=== PATIENT | male | born 1985 | race Caucasian/White ===

== ENCOUNTER 2021-10-02 15:45 | Observation (INO) | payer BC, SELFPAY ==
[2021-10-02] VITALS (7 sets, daily range): BP systolic 88–127; BP diastolic 71–99; PULSE 89–158; RESP 16–18; TEMP 36.6–36.7; O2SAT 96–99; BMI 24.2; BMI 25.0
--- NOTE | 2021-10-02 16:02 | EDS_ITS ---
HPI History of Present Illness Chief Complaint: Back Informant: patient Onset/Context/Timing Onset: Weeks (2-3) Context: Gradual Onset Timing: Continuous and Waxes and wanes Quality: Sharp and - (Stabbing) Location: Thoracic and Lumbar Worsened by: improves with Night time pain Relieved by: Remaining Still Narrative Narrative: Patient presents with back pain that has been waxing and waning over the past 2 to 3 weeks. Patient states it came on gradually. Patient describes his pain as sharp and stabbing. Patient states the pain is over the left lower thoracic and lumbar area. Patient states his pain is worse at night. Patient states pain radiates down his legs bilaterally but is worse on the right. Patient does admit to some mild numbness and tingling. Patient denies any bowel or bladder changes. Patient denies any saddle anesthesia. Patient denies any trauma or injury. Patient states she went to urgent care for this. Patient states she was prescribed an antibiotic and a course of prednisone. Patient states he finished the antibiotic. Patient states it was to cover an infection in his foot. Patient states he is still taking the prednisone. [facility] Medical History (Updated 10/02/21 @ 19:[address] Adrián Meehan DO) No acute medical problems Medical History no medical history no medical history Home Medications No Known/Unobtainable [No Known Home Medications] 03/28/15 [History Last Taken Unknown] Allergy/AdvReac Type Severity Reaction Status Date / Time No Known Allergies Allergy Verified 10/02/21 16:03 Surgical History no surgical history no surgical history Social History Smoking Status: Never smoker ROS ROS ED Constitutional Constitutional ED: Denies chills or fever(s) Eyes Eyes: Denies blurry vision or change in vision ENT ENT ED: Reports sore throat; Denies rhinorrhea Cardiovascular Cardiovascular: Denies chest pain or palpitations Respiratory/Chest Respiratory/Chest: Denies cough or dyspnea Gastrointestinal Gastrointestinal: Denies nausea or vomiting Genitourinary Genitourinary ED: Denies dysuria or hematuria Musculoskeletal Musculoskeletal: Reports back pain; Denies neck pain Integumentary Denies abscess or rash Neurologic Neurologic: Denies headache(s) or weakness Allergic/Immunologic Allergic/Immunologic ED: Denies mouth swelling or urticaria EXAM Physical Exam Const Vital Signs: 10/02/21 15:46 10/02/21 15:57 10/02/21 16:31 Temperature 97.9 F 98.0 F Temperature Source Temporal Oral Pulse Rate 158 H 120 H Respiratory Rate 16 16 18 Blood Pressure 88/75 L 127/99 H 110/75 Blood Pressure Mean 79 108 86 Pulse Ox 99 Oxygen Delivery Method Room Air Room Air Room Air 10/02/21 18:28 Temperature Temperature Source Pulse Rate 111 H Respiratory Rate 18 Blood Pressure 105/78 Blood Pressure Mean 87 Pulse Ox 97 Oxygen Delivery Method Room Air Positive well nourished and well developed General Appearance ED: well developed and NAD HEENT Reports moist mucous membranes Resp normal respiratory effort and clear to auscultation bilaterally Cardio regular rhythm Rate: tachycardic GI normal to inspection, nondistended, normoactive bowel sounds, soft to palpation and non-tender Back/Spine Back/Spine Narrative: There is tenderness and spasm of the left lower thoracic and lumbar paraspinal muscles. There is no midline tenderness. There is no bony crepitance or step- off. There is no edema or ecchymosis. There is good range of motion. Strength is 5/5 bilaterally in lower extremities. There are no sensory deficits. Deep tendon reflexes are 2/4 bilaterally. Thoracic Spine / Upper Back: paraspinal muscle tenderness left Lumbar Spine / Lower Back: ROM limited and straight leg raise negative bi laterally Extremity normal to inspection and no clubbing, cyanosis or edema Neuro oriented x3 and no sensory deficits noted Motor Exam: strength 5/5 throughout Skin no rashes or lesions noted MDM MDM MDM Narrative Medical decision making narrative: Patient was given IV fluids and morphine. Initial EKG was obtained. On my interpretation, it showed a supraventricular tachycardia with a rate of 129. QRS interval is normal at 90, QTc interval was 454. [place] was normal. There are no acute ST or T wave changes. CBC shows a leukocytosis of 14.4. This is likely from the prednisone. Comprehensive metabolic profile was within normal limits. High-sensitivity troponin was normal. Urinalysis does not show any evidence of urinary tract infection. CTA of the chest, abdomen, and pelvis was obtained. There is no evidence of arterial dissection. There is no evidence of pulmonary embolism. There is no acute intra-abdominal abnormality. This was interpreted by the radiologist and reviewed by myself. Patient was advised of his findings. On reevaluation, the patient had a normal heart rate but sometimes would become mildly tachycardic in the 110s. This was intermittent while I was talking with him in the room. Because of this, repeat EKG was obtained. Interpretation, patient still had a accelerated junctional tachycardia with a rate of 121. There are no acute ST or T wave changes. I went back to his room to discuss his options with him. I recommended he be admitted to the hospital for further evaluation. While I was talking to him, he would have episodes of a normal sinus rhythm and then episodes of the tachycardia on the monitor. Patient's blood pressure was 90/58. Patient was given a repeat bolus of normal saline. Because of the low blood pressure, I am holding off on giving the patient any Cardizem for the tachycardia. Case was discussed with the hospitalist. She will admit the patient for observation. Patient and family understood and were agreeable with the plan. All questions were answered. Lab Data Attestation: I reviewed the patient's lab results. Labs: Laboratory Results - last 24 hr 10/02/21 10/02/21 10/02/21 16:25 16:25 17:10 WBC 14.4 H RBC 4.95 Hgb 16.1 Hct 45.8 MCV 92.5 MCH 32.5 H MCHC 35.2 RDW Std Deviation 40.7 RDW Coeff of Jaime 11.9 Plt Count 326 MPV 9.1 Immature Gran % (Auto) 0.600 Neut % (Auto) 87.7 H Lymph % (Auto) 5.9 L [place] % (Auto) 4.9 Eos % (Auto) 0.6 Baso % (Auto) 0.3 Absolute Neuts (auto) 12.6 H Absolute Lymphs (auto) 0.84 Nucleated RBC % 0 Sodium 138 Potassium 3.7 Chloride 105 Carbon Dioxide 27.0 Anion Gap 6 BUN 18 Creatinine 1.14 Estim Creat Clear Calc 91.61 Est GFR (MDRD) Af Amer 93 Est GFR (MDRD) Non-Af 77 BUN/Creatinine Ratio 15.8 Glucose 165 H Calcium 9.2 Total Bilirubin 0.40 AST 16 ALT 28 Alkaline Phosphatase 54 Troponin I High Sens 8 Total Protein 7.0 Albumin 3.4 Globulin 3.6 Albumin/Globulin Ratio 0.9 Urine Color Straw Urine Clarity Clear Urine pH 7.0 Ur Specific [place] 1.010 Urine Protein Negative Urine Glucose (UA) Normal Urine Ketones Negative Urine Occult Blood Negative Urine Nitrite Negative Urine Bilirubin Negative Urine Urobilinogen Normal Ur Leukocyte Esterase Negative Urine RBC 0 SEEN Urine WBC 0 SEEN Ur Squamous Epith Cells 0 SEEN Urine Bacteria 1+ Urine Mucus 0 SEEN Radiography Diagnostic Testing: Clinical Impression(s) from Imaging Studies Chest/Abdomen/Pelvis CTA 10/02/21 16:07 IMPRESSION: Fatty infiltration of the liver. Enlarged prostate gland. Electronically Signed: Callie Vera MD at 17:31 EDT , ADDENDUM: 10/02/21 3802 IMPRESSION: undefined EKG Initial EKG: Attestation: I personally reviewed and interpreted this EKG as follows: Interpretation: No Acute Injury Pattern and SVT (129) Prior EKG tracings: not available for review Prior: No Prior Discharge Plan Triage Chief Complaint: Back ED Provider: Adrián Meehan Dx/Rx/DC Orders Clinical Impression: Junctional tachycardia, Back pain of thoracolumbar region Prescriptions: No Action No Known Home Medications Primary Care Provider: Care Physician,No Primary Referrals: Jonah Garcia DO [Med Staff - Principal Hardware Architect] - 5-7 Days Care Physician,No Primary [Primary Care Provider] - Disposition Disposition: Acute Care Hospital [facility]
--- NOTE | 2021-10-02 16:07 | EKG12_ITS ---
Test Reason : GENERAL ILLNESS Blood Pressure : / mmHG Vent. Rate : 129 BPM Atrial Rate : 131 BPM P-R Int : 000 ms QRS Dur : 090 ms QT Int : 310 ms P-R-T Axes : 000 089 017 degrees QTc Int : 454 ms Accelerated Junctional rhythm Abnormal ECG Confirmed by SAMMY VALENCIA, MADISON ([id number]), business editor MARY SANCHEZ ([id number]) on 10/04/2021 1:06:11 PM Referred By: JOSUE Confirmed By:MADISON CHRISTIANSON MD
--- NOTE | 2021-10-02 16:07 | CT_ITS ---
INDICATION: Chest pain, back pain EXAMINATION: CTA CHEST, ABDOMEN AND PELVIS WITH CONTRAST - TECHNIQUE: A CTA of the chest, abdomen, and pelvis is obtained with sagittal and coronal reconstructed MIP views. Three-dimensional surface rendered sequence of the thoracic and abdominal aorta was obtained. A radiation dose optimization technique was used for this scan. 100 mL of Isovue-370. Oral contrast: None. COMPARISON: None. FINDINGS: CT CHEST: THORACIC AORTA: No atheromatous disease, no aneurysmal changes or dissection. ABDOMINAL AORTA: No aneurysm or dissection. No significant atheromatous disease. The iliac arteries are unremarkable. LUNGS: The lungs are well-expanded without acute or chronic changes. No effusions or pneumothorax. MEDIASTINUM: The thyroid gland is normal. No mediastinal or hilar adenopathy. HEART: Heart is normal size. No pericardial effusion. No coronary artery calcifications. CT ABDOMEN AND PELVIS: LIVER: The liver is diffusely low in attenuation consistent with fatty infiltration. No masses identified. GALLBLADDER: The CBD is normal. Normal gallbladder. SPLEEN: Normal. PANCREAS: No masses or inflammation. ADRENAL GLANDS: Normal. KIDNEYS AND URETERS: The kidneys both enhance appropriately. There are normal size and shape. No hydronephrosis or nephrolithiasis. There are bilateral renal cysts. STOMACH: Normal. SMALL BOWEL: No abnormal distention of the small bowel. MESENTERY: No mesenteric inflammation. No ascites. COLON: No significant diverticulosis, masses or inflammation. The colon otherwise is normal. There is a large fatty ileocecal valve. APPENDIX: The appendix is visualized and normal. IVC: Normal. RETROPERITONEUM: No retroperitoneal lymphadenopathy. PELVIC STRUCTURES: Normal bladder. The prostate gland is enlarged. SOFT TISSUES ABDOMEN: The anterior abdominal wall is normal. SOFT TISSUE CHEST: The extrathoracic soft tissues are normal. BONES: No fractures or significant degenerative disease. CT/CTA Chst, Abd, Pel W and/or WO IMPRESSION: Fatty infiltration of the liver. Enlarged prostate gland. Electronically Signed: Callie Vera MD at 17:31 EDT ,
--- NOTE | 2021-10-02 16:20 | NURSING ---
NO OLD EKGS
[2021-10-02] MEDS: 0.9% Normal Saline 1,000 ML 1000 ML IV ×2 (16:28→18:51)
[2021-10-02 16:49] LABS: Absolute Lymphocyte Count 0.84 X10^3/uL (0.83-4.51); Absolute Neutrophil Count 12.6 X10^3/uL (2.0-7.7); Basophil# 0.04 X10^3/uL; Basophil% 0.3 % (0-1); Eosinophil# 0.08 X10^3/uL; Eosinophils% 0.6 % (0-5); Hematocrit 45.8 % (40-54); Hemoglobin 16.1 g/dL (13.0-16.5); Lymphocyte # 0.84 X10^3/ul (0.83-4.51); Lymphocyte % 5.9 % (19-41); Mean Corp Hgb Conc 35.2 g/dL (32-36); Mean Corpuscular Hgb 32.5 pg (27.0-32.0); Mean Corpuscular Volume 92.5 fL (80-94); Mean Platelet Vol. 9.1 fl (6.2-12.0); Monocyte# 0.71 X10^3/uL; Monocyte% 4.9 % (0-10); NRBC Flagged by Analyzer 0 % (0-5); Neutrophil % 87.7 % (47-70); Platelet Count 326 K/mm3 (150-450); RBC Distribution Width CV 11.9 % (11.6-14.6); RBC Distribution Width SD 40.7 fl (35.1-43.9); Red Blood Count 4.95 M/mm3 (4.6-6.2); White Blood Count 14.4 K/mm3 (4.4-11.0)
[2021-10-02 17:00] LABS: ALB/GLOB Ratio 0.9 RATIO (0.9-2.4); AST(SGOT) 16 U/L (15-37); Alanine Aminotransfer ALT/SGPT 28 U/L (16-61); Albumin, Serum 3.4 g/dL (3.2-5.0); Alkaline Phosphatase 54 U/L (45-117); Anion Gap 6 (5-15); BUN 18 mg/dL (7-18); BUN/Creat Ratio 15.8 RATIO (10-20); Calcium,Total 9.2 mg/dL (8.5-10.1); Chloride 105 mmol/L (98-107); Creatinine, Serum 1.14 mg/dL (0.70-1.30); EST Glomerular Filtration Rate 77 mL/min (>60); Est Glom Filt Rate - Afr Amer 93 mL/min (>60); Estimated Creatinine Clearance 91.61 ml/min; Globulin 3.6 g/dL (2.2-4.2); Glucose 165 mg/dL (74-106); Potassium 3.7 mmol/L (3.5-5.1); Sodium Level 138 mmol/L (136-145); Troponin-I HS 8 pg/mL (3.0-78.0)
[2021-10-02 17:24] LABS: Mucous, Urine 0 SEEN /hpf (<or=2+); Red Blood Cells-Urine 0 SEEN /hpf (0-5); Squamous Epithelial Cells - UA 0 SEEN /hpf (0-5); White Blood Cells 0 SEEN /hpf (0-5)
[2021-10-02 17:31] LABS: Color, Urine Straw (Yellow); Glucose, Dipstick Normal (Normal); Ketone-Dipstick Negative (Negative); Leukocyte Esterase-Dipstick Negative /ul (Negative); Nitrite-Dipstick Negative (Negative); Occult Blood-Urine Negative /ul (Negative); Protein-Dipstick Negative (Negative); Urine Bilirubin Dipstick Negative (Negative); Urine Clarity Clear (Clear); Urine Urobilinogen Normal (Normal)
[2021-10-02 17:50] LABS: Bacteria 1+ /hpf (None Seen)
[2021-10-02] MEDS: Morphine 4 MG/ML Syringe IV (17:51)
--- NOTE | 2021-10-02 17:59 | EKG12_ITS ---
Test Reason : REPEAT Blood Pressure : / mmHG Vent. Rate : 122 BPM Atrial Rate : 122 BPM P-R Int : 000 ms QRS Dur : 090 ms QT Int : 324 ms P-R-T Axes : 000 092 145 degrees QTc Int : 461 ms Accelerated Junctional rhythm Lateral infarct , age undetermined Abnormal ECG Confirmed by SAMMY VALENCIA, MADISON ([id number]), acquisition editor MARY SANCHEZ ([id number]) on 10/04/2021 1:06:26 PM Referred By: JOSUE Confirmed By:MADISON CHRISTIANSON MD
--- NOTE | 2021-10-02 19:00 | HP.PCM.HOS_ITS ---
HPI - General General Date of Admission: 10/02/21 Date of Service: 10/02/21 Chief Complaint: Intractable back pain, radicular pain, weight loss, night sweats. HPI Narrative The patient is a 36 y/o M w/ no marked PMHx, healthy, exercises 5x/week who presents to the [facility] ED on 10/02/21 with ongoing progressively worsening, primarily at night, lumbar back pain over the last 2 to 3 weeks noted to be waxing and waning, when it comes on sharp and stabbing in nature primarily over the left thoracic region just below the shoulder blade (isolated) and then also to the BL lumbar region and SI region with radiation down primarily the RLE extremity with mild intermittent paresthesias with no loss or change to bowel or bladder and no saddle anesthesia nor any recent trauma or injury with urgent care evaluation with recent steroid administration x2 rounds. Of note patient was administered oral antibiotic for a foot infection 3 weeks prior to current presentation which has resolved, was noted to have cellulitis between the 1st and 2nd toes but does report frequently walks barefoot in the home. He rates his discomfort in the back when occurring 7-810 in severity and it has caused him to be unable to sleep well or continuously for the last several weeks. He notes also a ~ 20 lb weight loss and nights sweats. Work up in the ED included T97.7, heart rate initially 150 with most recent 111, BP initially 88/75 with most recent 105/78, respiratory rate 16, 99% on room air, CBC with WC 14.4, hemoglobin 16.1, platelet 326 with left shift, CMP with glucose 165 otherwise not marked appearing, troponin 8, urinalysis with no obvious evidence of dehydration or UTI, CTA chest/abdomen/pelvis with fatty infiltration of the liver and enlarged prostate with suboptimal opacification the segmental and subsegmental pulmonary arteries but no gross pulmonary emboli visualized, EKG x 2 with junctional tachycardia with no comparison and on monitor will transition to SR in the 80s then flip back. In the ED patient administered 2 L bolus normal saline as well as morphine 4 mg IV x1. [facility] Medical History (Updated 10/02/21 @ 19:[address] Adrián Meehan, DO) No acute medical problems Medical History no medical history Home Medications No Known/Unobtainable [No Known Home Medications] 01/24/16 [History Last Taken Unknown] Allergy/AdvReac Type Severity Reaction Status Date / Time No Known Allergies Allergy Verified 10/02/21 16:03 Family History (Updated 10/02/21 @ 19:[address] Lois Neal MD) Mother HLD (hyperlipidemia) other (Patient denies any marked paternal family history including HD, DM, CA.) Surgical History (Updated 10/02/21 @ 19:[address] Lois Neal MD) No history of previous surgery Surgical History no surgical history Social History (Updated 10/02/21 @ 19:[address] Lois Neal MD) household members: other details: Lives with his and two children. Smoking Status: Never smoker alcohol intake: current alcohol intake frequency: a few times a month substance use type: does not use what type of physical activity do you participate in: aerobics and weight training frequency: 5-6 times per week ROS ROS Narrative Admission Review of Systems: CONSTITUTIONAL: No fever, chills, + weight loss, night sweats, weakness or fatigue. HEENT: Eyes: No visual loss, blurred vision, double vision or yellow sclerae. Ears, Nose, Throat: No hearing loss, sneezing, congestion, runny nose or sore throat. SKIN: No rash or itching, lesions, wounds. CARDIOVASCULAR: No chest pain, chest pressure or chest discomfort, palpitations, edema, orthopnea, syncopal events. RESPIRATORY: No shortness of breath, cough or sputum, wheezing, hemoptysis. GASTROINTESTINAL: No anorexia, nausea, vomiting or diarrhea, abdominal pain, melena, BRBPR. GENITOURINARY: No dysuria, frequency, urgency or retention. NEUROLOGICAL: + Back pain, radiculopathy, paresthesias, No headache, dizziness, syncope, paralysis, ataxia, focal weakness, change in bowel or bladder control, seizure. MUSCULOSKELETAL: + muscle, back pain, joint pain or stiffness. HEMATOLOGIC: No anemia, bleeding or bruising. LYMPHATICS: No enlarged nodes. No history of splenectomy. PSYCHIATRIC: No history of depression or anxiety. ENDOCRINOLOGIC:+ reports of sweating, cold or heat intolerance. No polyuria or polydipsia. ALLERGIES: No history of asthma, hives, eczema or rhinitis. Vital Signs Vital Signs Vital Signs: 10/02/21 15:46 10/02/21 15:57 10/02/21 16:31 Temperature 97.9 F 98.0 F Temperature Source Temporal Oral Pulse Rate 158 H 120 H Respiratory Rate 16 16 18 Blood Pressure 88/75 L 127/99 H 110/75 Blood Pressure Mean 79 108 86 Pulse Ox 99 Oxygen Delivery Method Room Air Room Air Room Air 10/02/21 18:28 Temperature Temperature Source Pulse Rate 111 H Respiratory Rate 18 Blood Pressure 105/78 Blood Pressure Mean 87 Pulse Ox 97 Oxygen Delivery Method Room Air Weight Weight: 169 lb Body Mass Index (BMI) 24.2 Physical Exam Narrative Physical Examination: General: Awake, alert, oriented x 3 and cooperative, seated upright in the ED bed in no apparent distress currently, notes pain primarily worse at night but with palpation of the L thoracic region able to cause radiculopathy and paresthesia onset RLE. Skin: Normal color, normal turgor, no icterus, no cyanosis. HEENT: AT/NC, EOMI, PERRLA, MMM, no carotid bruits or JVD noted. Lungs: CTA bilaterally, moderate effort, mild decrease BL bases, no rales, ronchi or wheezing. Heart: Irregular irregular; no gallop, rub audible. Abdomen: Soft, NTTP, ND, distant normal BS, no HSM. Extremities: No cyanosis, clubbing, or edema. Neurological: Patient awake, alert, oriented as noted, cognitive function intact; pupils equally reactive to light and accommodation, cranial nerves II- XII grossly normal, moving all 4 extremities, no focal deficits, strength mildly globally decreased, reproducible paresthesias, radiculopathy with L lateral thoracic region palpation below shoulder blade, no obvious mass/skin change, dis comfort w/ BL lumbar paraspinous palpation and SI palpation. Psychiatric: Affect appears fatigued otherwise normal, no acute evidence of depressive or anxiety feelings. Results Lab / Micro Data Result Diagrams: 10/02/21 16:25 10/02/21 16:25 Labs: Laboratory Results - last 24 hr 10/02/21 16:25: WBC 14.4 H, RBC 4.95, Hgb 16.1, Hct 45.8, MCV 92.5, MCH 32.5 H, MCHC 35.2, RDW Std Deviation 40.7, RDW Coeff of Jaime 11.9, Plt Count 326, MPV 9.1, Immature Gran % (Auto) 0.600, Neut % (Auto) 87.7 H, Lymph % (Auto) 5.9 L, [place] % (Auto) 4.9, Eos % (Auto) 0.6, Baso % (Auto) 0.3, Absolute Neuts (auto) 12.6 H, Absolute Lymphs (auto) 0.84, Nucleated RBC % 0 10/02/21 16:25: Sodium 138, Potassium 3.7, Chloride 105, Carbon Dioxide 27.0, Anion Gap 6, BUN 18, Creatinine 1.14, Estim Creat Clear Calc 91.61, Est GFR (MDRD) Af Amer 93, Est GFR (MDRD) Non-Af 77, BUN/Creatinine Ratio 15.8, Glucose 165 H, Calcium 9.2, Total Bilirubin 0.40, AST 16, ALT 28, Alkaline Phosphatase 54, Troponin I High Sens 8, Total Protein 7.0, Albumin 3.4, Globulin 3.6, Albumi n/Globulin Ratio 0.9 10/02/21 17:10: Urine Color Straw, Urine Clarity Clear, Urine pH 7.0, Ur Specific [place] 1.010, Urine Protein Negative, Urine Glucose (UA) Normal, Urine Ketones Negative, Urine Occult Blood Negative, Urine Nitrite Negative, Urine Bilirubin Negative, Urine Urobilinogen Normal, Ur Leukocyte Esterase Negative, Urine RBC 0 SEEN, Urine WBC 0 SEEN, Ur Squamous Epith Cells 0 SEEN, Urine Bacteria 1+, Urine Mucus 0 SEEN Radiology Impression Chest/Abdomen/Pelvis CTA 10/02/21 16:07 IMPRESSION: Fatty infiltration of the liver. Enlarged prostate gland. Electronically Signed: Callie Vera MD at 17:31 EDT , ADDENDUM: 10/02/21 0581 IMPRESSION: undefined Assessment & Plan Assessment/Plan (1) Back pain of thoracolumbar region: (2) Junctional tachycardia: PLAN: Plan The patient is a 36 y/o M w/ no marked PMHx, healthy, exercises 5x/week who presents to the [facility] ED on 10/02/21 with ongoing progressively worsening, primarily at night, lumbar back pain w/ RLE extremity radicular pain w/ mild intermittent paresthesias as well as a ~ 20 lb weight loss and nights sweats. #1. Acute Intractable Back Pain w/ Radiculopathy, Paresthesias: CT C/A/P without acute findings, unclear etiology for back pain. Will admit to PCU given #2 concurrently, maintain on fall precautions, frequent positioning, initiate IV toradol, lidoacine patches, tizanidine, medrol dose pack, po/IV narcotic pain regimen with hold parameters for scheduled regimen for sedation, anti-emetics, bowel regimen. Will consult PT and OT for evaluation as well as Case management for discharge planning. Given paresthesias and no obvious findings on CT with weight loss and night sweats with incidentally noted also enlarged prostate will request MRI thoracic and lumbar spine. #2. Arrhythmia, junctional rhythm intermittently: We will maintain on monitor, cycle cardiac enzymes, obtain FLP in a.m., obtain TSH/free T4, obtain magnesium level, obtain ECHO, repeat EKG and continue to treat as noted number 1. #3. Hypotension, medication related: Notably decreased BP following morphine administration, improved with IVFs, will be judicious with narcotic regimen. #4. Incidentally enlarged prostate: Although recent acute presentation, will obtain PSA for baseline. #5. Hyperglycemia: Admission glucose 165, likely secondary to steroid usage, will trend and obtain HgBA1c if necessary. #6. DVT prophylaxis: Low risk with no obvious concerning history at this point although work is pending as noted, despite #1 is able to ambulate well. Charges/Coding Visit Charges OBSV E&M: 24027 Initial observation care L2
[2021-10-02 20:19] LABS: Magnesium 1.9 mg/dL (1.6-2.6)
[2021-10-02 20:21] LABS: Amphetamine Urine VISTA NEGATIVE (<1000 ng/mL); Barbiturate Urine VISTA NEGATIVE (< 200 ng/mL); Benzodiazepine Urine VISTA NEGATIVE (< 200 ng/mL); Cocaine Urine VISTA NEGATIVE (< 300 ng/mL); Ecstacy Urine VISTA NEGATIVE (< 500 ng/mL); Methadone Urine VISTA NEGATIVE (< 300 ng/mL); PCP Urine VISTA NEGATIVE (< 25 ng/mL); THC Urine VISTA NEGATIVE (< 50 ng/mL); Vista UDS pH Range 6
[2021-10-02] MEDS: 0.9% Normal Saline 1,000 ML 125 ML IV (21:12)
[2021-10-02] MEDS: Gabapentin 100 MG Capsule PO (21:12)
[2021-10-02] MEDS: Ketorolac 30 MG/ML Syringe IV (21:12)
[2021-10-02] MEDS: 0.9% Saline Lock 10 ML Syringe IV (21:13)
[2021-10-02 21:19] LABS: Troponin-I HS 7 pg/mL (3.0-78.0)
[2021-10-02] MEDS: Lidocaine 5% Patch 2 PATCH TOPICAL (21:26)
[2021-10-02] MEDS: MethylPREDNISolone DosePak 4 MG BOX PO (21:30)
[2021-10-02] MEDS: tiZANidine HCl 2 MG Tablet PO (21:30)
[2021-10-02 22:58] LABS: Troponin-I HS 5 pg/mL (3.0-78.0)
[2021-10-03 02:44] VITALS: BP 118/88; PULSE 81; RESP 18; TEMP 36.4; O2SAT 98
[2021-10-03 02:59] VITALS: PULSE 86
[2021-10-03 03:24] LABS: Absolute Lymphocyte Count 0.83 X10^3/uL (0.83-4.51); Absolute Neutrophil Count 11.9 X10^3/uL (2.0-7.7); Basophil# 0.03 X10^3/uL; Basophil% 0.2 % (0-1); Eosinophil# 0.01 X10^3/uL; Eosinophils% 0.1 % (0-5); Hemoglobin 14.5 g/dL (13.0-16.5); Lymphocyte # 0.83 X10^3/ul (0.83-4.51); Lymphocyte % 6.1 % (19-41); Mean Corp Hgb Conc 34.5 g/dL (32-36); Mean Corpuscular Hgb 31.7 pg (27.0-32.0); Mean Corpuscular Volume 91.7 fL (80-94); Mean Platelet Vol. 9.3 fl (6.2-12.0); Monocyte# 0.66 X10^3/uL; Monocyte% 4.9 % (0-10); NRBC Flagged by Analyzer 0 % (0-5); Neutrophil # 11.92 X10^3/uL (2.7-7.7); Neutrophil % 88.1 % (47-70); Platelet Count 304 K/mm3 (150-450); RBC Distribution Width CV 12.1 % (11.6-14.6); RBC Distribution Width SD 40.3 fl (35.1-43.9); Red Blood Count 4.58 M/mm3 (4.6-6.2); White Blood Count 13.5 K/mm3 (4.4-11.0)
[2021-10-03 03:41] LABS: Troponin-I HS 7 pg/mL (3.0-78.0)
[2021-10-03 04:54] LABS: ALB/GLOB Ratio 0.8 RATIO (0.9-2.4); AST(SGOT) 10 U/L (15-37); Alanine Aminotransfer ALT/SGPT 26 U/L (16-61); Albumin, Serum 2.8 g/dL (3.2-5.0); Alkaline Phosphatase 49 U/L (45-117); Anion Gap 7 (5-15); BUN 12 mg/dL (7-18); BUN/Creat Ratio 15.3 RATIO (10-20); Calcium,Total 8.5 mg/dL (8.5-10.1); Chloride 105 mmol/L (98-107); Cholesterol 127 mg/dL (200); Creatinine, Serum 0.78 mg/dL (0.70-1.30); EST Glomerular Filtration Rate 119 mL/min (>60); Est Glom Filt Rate - Afr Amer 143 mL/min (>60); Estimated Creatinine Clearance 129.67 ml/min; Globulin 3.3 g/dL (2.2-4.2); Glucose 130 mg/dL (74-106); High Density Lipoprotein 43 mg/dL; PSA,Total- Diagnostic 0.37 ng/mL (0.0-4.0); Potassium 4.1 mmol/L (3.5-5.1); Protein, Total 6.1 g/dL (6.4-8.2); Sodium Level 138 mmol/L (136-145); T4 Free Direct 1.16 ng/dL (0.76-1.46); Thyroid Stim Hormone (TSH) 1.05 uIU/mL (0.358-3.74); Triglycerides 58 mg/dL; Very Low Density Lipoprotein 12 mg/dL (5-40)
[2021-10-03] MEDS: 0.9% Normal Saline 1,000 ML 125 ML IV (05:04)
[2021-10-03] MEDS: Ketorolac 30 MG/ML Syringe IV ×2 (05:04→13:48)
[2021-10-03] MEDS: 0.9% Saline Lock 10 ML Syringe IV ×2 (05:05→13:55)
[2021-10-03] MEDS: tiZANidine HCl 2 MG Tablet PO ×2 (05:05→13:47)
--- NOTE | 2021-10-03 05:55 | ECHOD_ITS ---
Reason For Study: Arrhythmia Procedure This was a 2D Doppler, Color Flow transthoracic echocardiogram. Exam performed portable in patient room. Left Ventricle Normal LV size. Left ventricular systolic function is normal. The estimated ejection fraction is 60 %. No regional wall motion abnormalities noted. Right Ventricle Normal RV size. Normal systolic function. Atria Normal left atrium. Normal right atrium. Mitral Valve Systolic anterior motion of the mitral valve. Mild (1+) mitral valve insufficiency. Tricuspid Valve Normal tricuspid valve. Aortic Valve Normal aortic valve. Trisinus/trileaflet aortic valve. Pulmonic Valve Normal pulmonic valve. Great Vessels Normal aortic root. The pulmonary artery is normal size. Normal inferior vena cava. Pericardium/Pleural No pericardial effusion. MMode/2D Measurements & Calculations LVIDd: 3.7 cm IVSd: 2.0 cm Ao root diam: 3.4 cm LVIDs: 2.4 cm LVPWd: 1.2 cm RVDd: 3.4 cm FS: 36.7 % LAV(MOD-bp): 21.3 ml LVAd ap4: 33.2 cm2 LVAd ap2: 31.4 cm2 LAV(MOD-bp) Indexed: 11.1 ml/m2 LVLd ap4: 8.9 cm LVLd ap2: 9.2 cm LAV(MOD-sp2): 23.8 ml EDV(MOD-sp4): 103.5 ml EDV(MOD-sp2): 92.3 ml LAV(MOD-sp4): 18.0 ml EDV(sp4-el): 105.2 ml EDV(sp2-el): 90.5 ml LVAs ap4: 19.8 cm2 LVAs ap2: 20.9 cm2 LVLs ap4: 7.7 cm LVLs ap2: 8.3 cm ESV(MOD-sp4): 44.0 ml ESV(MOD-sp2): 47.3 ml ESV(sp4-el): 43.2 ml ESV(sp2-el): 44.5 ml EF(MOD-sp4): 57.5 % EF(MOD-sp2): 48.8 % EF(sp4-el): 59.0 % SV(MOD-sp4): 59.5 ml SV(MOD-sp2): 45.0 ml SV(sp4-el): 62.1 ml LA dimension(2D): 2.8 cm LA A4 area: 11.6 cm2 RA A4 area: 14.1 cm2 Doppler Measurements & Calculations MV E max stefan: 90.3 cm/sec Lat Peak E' Stefan: 28.5 cm/sec Med Peak E' Stefan: 15.4 cm/sec E/E' lat: 3.2 E/E' med: 5.9 Ao V2 max: 117.2 cm/sec LV V1 max: 101.0 cm/sec PA V2 max: 85.6 cm/sec Ao max P.5 mmHg LV V1 max P.1 mmHg PA V2 mean: 65.6 cm/sec LV V1 mean P.2 mmHg LV V1 mean: 67.5 cm/sec LV V1 VTI: 16.2 cm ECHO/Echo Complete Interpretation Summary Normal LV size. Left ventricular systolic function is normal. The estimated ejection fraction is 60 %. Systolic anterior motion of the mitral valve. Mild (1+) mitral valve insufficiency. Ordering Physician: Lois Neal Performed By: Lizet Martin RDCS
--- NOTE | 2021-10-03 05:55 | EKG12_ITS ---
Test Reason : am ekg Blood Pressure : / mmHG Vent. Rate : 085 BPM Atrial Rate : 085 BPM P-R Int : 264 ms QRS Dur : 090 ms QT Int : 378 ms P-R-T Axes : 055 075 054 degrees QTc Int : 449 ms Sinus rhythm with sinus arrhythmia with 1st degree A-V block Otherwise normal ECG Confirmed by SAMMY VALENCIA, MADISON ([id number]), scientific editor MARY SANCHEZ ([id number]) on 10/04/2021 10:12:07 AM Referred By: Confirmed By:MADISON CHRISTIANSON MD
[2021-10-03 07:40] VITALS: PULSE 66
[2021-10-03 07:51] VITALS: BP 114/78; PULSE 106; RESP 18; TEMP 36.4; O2SAT 96
[2021-10-03] MEDS: Enoxaparin 40 MG/0.4 ML Syringe SC (07:54)
[2021-10-03] MEDS: MethylPREDNISolone DosePak 4 MG BOX PO ×2 (07:55→11:19)
[2021-10-03] MEDS: Aspirin 81 MG TAB.CHEW PO (07:55)
[2021-10-03] MEDS: Gabapentin 100 MG Capsule PO ×2 (07:59→11:18)
[2021-10-03 08:03] VITALS: O2SAT 95
--- NOTE | 2021-10-03 08:59 | PCM.PN.HOSP ---
Objective Data Objective Data Vital Signs: Vital Signs Temp Pulse Resp BP Pulse Ox O2 Del Method 97.6 F L 106 H 18 114/78 95 Room Air 10/03/21 07:51 10/03/21 07:51 10/03/21 07:51 10/03/21 07:51 10/03/21 08:03 10/03/21 08:03 Oxygen Delivery Method Room Air Weight: 169 lb 8.568 oz Body Mass Index (BMI) 25.0 Intake & Output: Intake and Output for Last 24 Hours 10/01/21 10/02/21 10/03/21 23:59 23:59 23:59 Intake Total 2119 1083.33 / 1083.33 Balance 2119 1083.33 / 1083.33 Lab / Micro Data Result Diagrams: 10/03/21 02:50 10/03/21 02:50 Labs: Laboratory Results - last 24 hr 10/02/21 16:25: WBC 14.4 H, RBC 4.95, Hgb 16.1, Hct 45.8, MCV 92.5, MCH 32.5 H, MCHC 35.2, RDW Std Deviation 40.7, RDW Coeff of Jaime 11.9, Plt Count 326, MPV 9.1, Immature Gran % (Auto) 0.600, Neut % (Auto) 87.7 H, Lymph % (Auto) 5.9 L, [place] % (Auto) 4.9, Eos % (Auto) 0.6, Baso % (Auto) 0.3, Absolute Neuts (auto) 12.6 H, Absolute Lymphs (auto) 0.84, Nucleated RBC % 0 10/02/21 16:25: Sodium 138, Potassium 3.7, Chloride 105, Carbon Dioxide 27.0, Anion Gap 6, BUN 18, Creatinine 1.14, Estim Creat Clear Calc 91.61, Est GFR (MDRD) Af Amer 93, Est GFR (MDRD) Non-Af 77, BUN/Creatinine Ratio 15.8, Glucose 165 H, Calcium 9.2, Total Bilirubin 0.40, AST 16, ALT 28, Alkaline Phosphatase 54, Troponin I High Sens 8, Total Protein 7.0, Albumin 3.4, Globulin 3.6, Albumin/Globulin Ratio 0.9 10/02/21 17:10: Urine Color Straw, Urine Clarity Clear, Urine pH 7.0, Ur Specific [place] 1.010, Urine Protein Negative, Urine Glucose (UA) Normal, Urine Ketones Negative, Urine Occult Blood Negative, Urine Nitrite Negative, Urine Bilirubin Negative, Urine Urobilinogen Normal, Ur Leukocyte Esterase Negative, Urine RBC 0 SEEN, Urine WBC 0 SEEN, Ur Squamous Epith Cells 0 SEEN, Urine Bacteria 1+, Urine Mucus 0 SEEN 10/02/21 19:41: Magnesium 1.9 10/02/21 19:41: Urine Opiates Screen NEGATIVE, Urine Methadone Screen NEGATIVE, Ur Barbiturates Screen NEGATIVE, Ur Phencyclidine Scrn NEGATIVE, Ur Amphetamines Screen NEGATIVE, MDMA (Ecstasy) Screen NEGATIVE, U Benzodiazepines Scrn NEGATIVE, Urine Cocaine Screen NEGATIVE, U Cannabinoids Screen NEGATIVE, Ur Drug Screen Comment 10/02/21 20:52: Troponin I High Sens 7 10/02/21 22:32: Troponin I High Sens 5 10/03/21 02:50: WBC 13.5 H, RBC 4.58 L, Hgb 14.5, Hct 42.0, MCV 91.7, MCH 31.7, MCHC 34.5, RDW Std Deviation 40.3, RDW Coeff of Jaime 12.1, Plt Count 304, MPV 9.3, Immature Gran % (Auto) 0.600, Neut % (Auto) 88.1 H, Lymph % (Auto) 6.1 L, [place] % (Auto) 4.9, Eos % (Auto) 0.1, Baso % (Auto) 0.2, Absolute Neuts (auto) 11.9 H, Absolute Lymphs (auto) 0.83, Nucleated RBC % 0 10/03/21 02:50: Sodium 138, Potassium 4.1, Chloride 105, Carbon Dioxide 26.0, Anion Gap 7, BUN 12, Creatinine 0.78, Estim Creat Clear Calc 129.67, Est GFR (MDRD) Af Amer 143, Est GFR (MDRD) Non-Af 119, BUN/Creatinine Ratio 15.3, Glucose 130 H, Calcium 8.5, Total Bilirubin 0.50, AST 10 L, ALT 26, Alkaline Phosphatase 49, Total Protein 6.1 L, Albumin 2.8 L, Globulin 3.3, Albumin/Globulin Ratio 0.8 L, Triglycerides 58, Cholesterol 127, LDL Cholesterol 72, VLDL Cholesterol 12, HDL Cholesterol 43, Total PSA 0.37, TSH 1.05, Free T4 1.16 10/03/21 02:50: Troponin I High Sens 7 Radiography Diagnostic Testing: Radiology Impression Chest/Abdomen/Pelvis CTA 10/02/21 16:07 IMPRESSION: Fatty infiltration of the liver. Enlarged prostate gland. Electronically Signed: Callie Vera MD at 17:31 EDT , ADDENDUM: 10/02/21 2222 IMPRESSION: undefined Assessment & Plan Assessment/Plan (1) Back pain of thoracolumbar region: (2) Junctional tachycardia: PLAN: Plan The patient is a 36 y/o M w/ no marked PMHx, healthy, exercises 5x/week who presents to the [facility] ED on 10/02/21 with ongoing progressively worsening, primarily at night, lumbar back pain w/ RLE extremity radicular pain w/ mild intermittent paresthesias as well as a ~ 20 lb weight loss and nights sweats. #1. Acute Intractable Back Pain w/ Radiculopathy, Paresthesias: CT C/A/P without acute findings, unclear etiology for back pain. Will admit to PCU given #2 concurrently, maintain on fall precautions, frequent positioning, initiate IV toradol, lidoacine patches, tizanidine, medrol dose pack, po/IV narcotic pain regimen with hold parameters for scheduled regimen for sedation, anti-emetics, bowel regimen. Will consult PT and OT for evaluation as well as Case management for discharge planning. Given paresthesias and no obvious findings on CT with weight loss and night sweats with incidentally noted also enlarged prostate will request MRI thoracic and lumbar spine. #2. Arrhythmia, junctional rhythm intermittently: We will maintain on monitor, cycle cardiac enzymes, obtain FLP in a.m., obtain TSH/free T4, obtain magnesium level, obtain ECHO, repeat EKG and continue to treat as noted number 1. #3. Hypotension, medication related: Notably decreased BP following morphine administration, improved with IVFs, will be judicious with narcotic regimen. #4. Incidentally enlarged prostate: Although recent acute presentation, will obtain PSA for baseline. #5. Hyperglycemia: Admission glucose 165, likely secondary to steroid usage, will trend and obtain HgBA1c if necessary. #6. DVT prophylaxis: Low risk with no obvious concerning history at this point although work is pending as noted, despite #1 is able to ambulate well.
--- NOTE | 2021-10-03 09:00 | MRI_ITS ---
EXAM: MR THORACIC SPINE WITHOUT AND WITH INTRAVENOUS CONTRAST CLINICAL INDICATION: Paresthesias, pain left thoracic pain, bilat lumbar pain, RLE pain, 20lb. weight loss,night sweats TECHNIQUE: Multiplanar and multisequence MR images of the thoracic spine without and with intravenous contrast. This report was created using [employer] report Delivery Agent technology. CONTRAST: IV 15ml dotarem COMPARISON: None. FINDINGS: VERTEBRAE: Unremarkable. No fracture. Normal vertebral bodies and posterior elements. Normal alignment. There is preservation of the normal thoracic kyphosis. No scoliosis. DISCS/SPINAL CANAL/NEURAL FORAMINA: Unremarkable. Normal disc height and morphology. Normal spinal canal and neuroforamina. SPINAL CORD: Unremarkable. Normal in signal and morphology. Normal conus medullaris. SOFT TISSUES: Unremarkable. MRI/Spine Thoracic W/WO Contrast IMPRESSION: Unremarkable MRI of the thoracic spine. Electronically Signed: Jj Ybarra MD at 14:47 EDT ,
--- NOTE | 2021-10-03 09:00 | MRI_ITS ---
EXAM: MR LUMBAR SPINE WITHOUT AND WITH INTRAVENOUS CONTRAST CLINICAL INDICATION: Paresthesias, pain TECHNIQUE: Multiplanar and multisequence MR images of the lumbar spine without and with intravenous contrast. This report was created using [employer] report [employer] technology. CONTRAST: IV dotarem 15ml COMPARISON: None. FINDINGS: VERTEBRAE: Unremarkable. Vertebral body heights are preserved. Normal vertebral bodies and posterior elements. Normal alignment. No spondylolisthesis. There is preservation of the normal lumbar lordosis. SPINAL CORD: Unremarkable. Normal position and signal intensity of the conus medullaris. SOFT TISSUES: Unremarkable. DISCS/SPINAL CANAL/NEURAL FORAMINA: L1-L2: Unremarkable. Normal disc height and morphology. Normal spinal canal and lateral recesses. Normal neuroforamina. L2-L3: Unremarkable. Normal disc height and morphology. Normal spinal canal and lateral recesses. Normal neuroforamina. L3-L4: Unremarkable. Normal disc height and morphology. Normal spinal canal and lateral recesses. Normal neuroforamina. L4-L5: Unremarkable. Normal disc height and morphology. Normal spinal canal and lateral recesses. Normal neuroforamina. L5-S1: Unremarkable. Normal disc height and morphology. Normal spinal canal and lateral recesses. Normal neuroforamina. MRI/Spine Lumbar W/WO Contrast IMPRESSION: Unremarkable MRI of the lumbar spine. Electronically Signed: Jj Ybarra MD at 15:11 EDT ,
--- NOTE | 2021-10-03 11:01 | DCINST_ITS ---
Discharge Instructions Diet Discharge Diet: No restrictions Activity Discharge Activity: Return to Normal Activity and May Not Drive Follow Up Care Test Results: Test results from this visit will be discussed in further detail at your follow- up appointment, if applicable. Discharge Plan Admission Admit Date/Time: 10/02/21 19:04 Primary Reason for Your Visit: Acute back pain Attending Provider: Tony Fair Primary Care Provider: Care Physician,No Primary Consulting Providers: Lois Neal Discharge Orders/Prescriptions Prescriptions: New tizanidine 2 mg Tablet 2 mg PO Q8 PRN (Reason: muscle spasm) Qty: 30 0RF Other Ambulatory Orders: Physical Therapy Evaluation (Routine) Location: None Selected Ordered By: Dr. Tony Fair Referrals / Follow Up: Jonah Garcia DO [Med Staff - [employer]] - 5-7 Days Care Physician,No Primary [Primary Care Provider] - Disposition Disposition (needs filled in before D/C Order can be placed): Home, Self Care
--- NOTE | 2021-10-03 13:10 | DS.PCM_ITS ---
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 Patient denies numbness tingling in lower extremity. He has night sweats. Patient also is due to power lifting training and competition, last 1 in November 2020. #1.? Acute Intractable Back Pain w/ Radiculopathy most likely lumbar back and left upper thoracic muscle sprain: Patient was admitted on PCU. On exam it seems patient has muscle tenderness of left upper thoracic paraspinal muscle group and lumbar paraspinal muscle groups. No point tenderness over thoracic and lumbar spine. PT and OT was done. Patient was given a steroid from urgent care and he had 4 days about 2 weeks ago and then recently started 4 days ago before admission. Advised to completed. Prescription given for tizanidine. Follow with PCP in 1 week. MRI thoracic and lumbar spine are done result pending and patient and I do not want to wait for the result. CTAP was done which did not show acute finding. Outpatient physical therapy a dvised. #2.? Arrhythmia, junctional rhythm and sinus arrhythmia: Twelve-lead EKG shows sinus rhythm with sinus arrhythmia, first-degree AV block 85 bpm. QTc 449 ms. His heart rate fluctuates between 80-1 20 per blood. Most recent 66/min. No fever. Patient takes energy drink as exercise regimen. He also takes caffeine but about 2 to coffee drinks that I think no problem. Advised to quit energy drink as it might have excitatory components/ingredients for arrhythmia. 2D echo EF 60% mild MR, systolic anterior motion of mitral valve. Patient denies near syncope, fainting, syncope, chest pain/pressure or shortness of breath or history of sudden cardiac in first-degree family elective. TSH and free T4 normal. Fasting profile in normal limit. Serum magnesium 1.9. High sensitive troponin normal. #3.? Hypotension, medication related: Resolved. BP 140s/28 normal #4.? Incidentally enlarged prostate: Total PSA normal. #5.? Hyperglycemia: Admission glucose 165, 130. Advised A1c as an outpatient. Might have prediabetes or diabetes. #6.? DVT prophylaxis: Low risk Discharge medication reconciliation done. Discharge follow-up instructions completed. Discharge process discussed with the patient and all questions were answered to patient's satisfaction. Total time spent, exact 35 minutes on discharge meds reconciliation, examination, coordination of care with nurses and ancillary staff, review of imaging and blood test and discussion with the patient on follow-up instructions. Physical Exam Narrative Physical exam General: Alert, Oriented x3, Cooperative HEENT: Atraumatic, PERRLA, EOMI, Normocephalic Oral: No Gingival or Mucosal Lesions/ Ulcerations Neck: Supple, No JVD, Negative Carotid Bruits Lungs: Air entry diminished in bilateral lung bases. No crepitation/rhonchi Cardiovascular: Sinus arrhythmia, normal S1, Normal S2, No murmurs Abdomen: Bowel Sounds Present, Soft, Non Tender, Non-Distended : No renal angle tenderness. No suprapubic tenderness. Extremities: No edema, Capillary Refill Less than 3 Seconds Skin: No rashes, No breakdown Musculoskeletal/spine: Mild left upper thoracic paraspinal muscle tenderness and lumbar muscle tenderness. No point vertebral/spine tenderness. Neurological: Cranial nerves II-XII grossly intact, DTR 2+/4 and Symmetrical, Neuro grossly intact Psych/Mental Status: Normal Affect, Appropriate. Weight / BMI Weight Weight: 169 lb 8.568 oz Body Mass Index (BMI) 25.0 ABG / Lab / Microbiology Data Result Diagrams: 10/03/21 02:50 10/03/21 02:50 Laboratory: Laboratory Results - last 24 hr 10/02/21 16:25: WBC 14.4 H, RBC 4.95, Hgb 16.1, Hct 45.8, MCV 92.5, MCH 32.5 H, MCHC 35.2, RDW Std Deviation 40.7, RDW Coeff of Jaime 11.9, Plt Count 326, MPV 9.1, Immature Gran % (Auto) 0.600, Neut % (Auto) 87.7 H, Lymph % (Auto) 5.9 L, [place] % (Auto) 4.9, Eos % (Auto) 0.6, Baso % (Auto) 0.3, Absolute Neuts (auto) 12.6 H, Absolute Lymphs (auto) 0.84, Nucleated RBC % 0 10/02/21 16:25: Sodium 138, Potassium 3.7, Chloride 105, Carbon Dioxide 27.0, Anion Gap 6, BUN 18, Creatinine 1.14, Estim Creat Clear Calc 91.61, Est GFR (MDRD) Af Amer 93, Est GFR (MDRD) Non-Af 77, BUN/Creatinine Ratio 15.8, Glucose 165 H, Calcium 9.2, Total Bilirubin 0.40, AST 16, ALT 28, Alkaline Phosphatase 54, Troponin I High Sens 8, Total Protein 7.0, Albumin 3.4, Globulin 3.6, Albumin/Globulin Ratio 0.9 10/02/21 17:10: Urine Color Straw, Urine Clarity Clear, Urine pH 7.0, Ur Specifi c [place] 1.010, Urine Protein Negative, Urine Glucose (UA) Normal, Urine Ketones Negative, Urine Occult Blood Negative, Urine Nitrite Negative, Urine Bilirubin Negative, Urine Urobilinogen Normal, Ur Leukocyte Esterase Negative, Urine RBC 0 SEEN, Urine WBC 0 SEEN, Ur Squamous Epith Cells 0 SEEN, Urine Bacteria 1+, Urine Mucus 0 SEEN 10/02/21 19:41: Magnesium 1.9 10/02/21 19:41: Urine Opiates Screen NEGATIVE, Urine Methadone Screen NEGATIVE, Ur Barbiturates Screen NEGATIVE, Ur Phencyclidine Scrn NEGATIVE, Ur Amphetamines Screen NEGATIVE, MDMA (Ecstasy) Screen NEGATIVE, U Benzodiazepines Scrn NEGATIVE, Urine Cocaine Screen NEGATIVE, U Cannabinoids Screen NEGATIVE, Ur Drug Screen Comment 10/02/21 20:52: Troponin I High Sens 7 10/02/21 22:32: Troponin I High Sens 5 10/03/21 02:50: WBC 13.5 H, RBC 4.58 L, Hgb 14.5, Hct 42.0, MCV 91.7, MCH 31.7, MCHC 34.5, RDW Std Deviation 40.3, RDW Coeff of Jaime 12.1, Plt Count 304, MPV 9.3, Immature Gran % (Auto) 0.600, Neut % (Auto) 88.1 H, Lymph % (Auto) 6.1 L, [place] % (Auto) 4.9, Eos % (Auto) 0.1, Baso % (Auto) 0.2, Absolute Neuts (auto) 11.9 H, Absolute Lymphs (auto) 0.83, Nucleated RBC % 0 10/03/21 02:50: Sodium 138, Potassium 4.1, Chloride 105, Carbon Dioxide 26.0, Anion Gap 7, BUN 12, Creatinine 0.78, Estim Creat Clear Calc 129.67, Est GFR (MDRD) Af Amer 143, Est GFR (MDRD) Non-Af 119, BUN/Creatinine Ratio 15.3, Glucose 130 H, Calcium 8.5, Total Bilirubin 0.50, AST 10 L, ALT 26, Alkaline Phosphatase 49, Total Protein 6.1 L, Albumin 2.8 L, Globulin 3.3, Albumin/Globulin Ratio 0.8 L, Triglycerides 58, Cholesterol 127, LDL Cholesterol 72, VLDL Cholesterol 12, HDL Cholesterol 43, Total PSA 0.37, TSH 1.05, Free T4 1.16 10/03/21 02:50: Troponin I High Sens 7 Radiography Diagnostic Testing: Radiology Impression Chest/Abdomen/Pelvis CTA 10/02/21 16:07 IMPRESSION: Fatty infiltration of the liver. Enlarged prostate gland. Electronically Signed: Callie Vera MD at 17:31 EDT , ADDENDUM: 10/02/21 [id number] IMPRESSION: undefined Echocardiogram 10/03/21 05:55 Interpretation Summary Normal LV size. Left ventricular systolic function is normal. The estimated ejection fraction is 60 %. Systolic anterior motion of the mitral valve. Mild (1+) mitral valve insufficiency. Ordering Physician: Lois Neal Performed By: Lizet Martin RDCS D/C Instructions Discharge Diet: No restrictions Meaningful Use Info Meaningful Use Diagnoses (Choose all that apply): None applicable Discharge Plan Admission Admit Date/Time: 10/02/21 19:04 Primary Reason for Your Visit: Acute back pain Attending Provider: Tony Fair Primary Care Provider: Care Physician,No Primary Consulting Providers: Lois Neal Discharge Orders/Prescriptions Prescriptions: New tizanidine 2 mg Tablet 2 mg PO Q8 PRN (Reason: muscle spasm) Qty: 30 0RF Other Ambulatory Orders: Physical Therapy Evaluation (Routine) Location: None Selected Ordered By: Dr. Tony Fair Referrals / Follow Up: Jonah Garcia DO [Med Staff - Case Investigator] - 5-7 Days Care Physician,No Primary [Primary Care Provider] - Disposition Disposition (needs filled in before D/C Order can be placed): Home, Self Care Charges/Coding Visit Charges OBSV E&M: 70614 Observation care discharge
--- NOTE | 2021-10-03 13:34 | PHA.DC.MC ---
Pharmacy Service has performed discharge medication reconciliation and counseling for this patient. 1. TIZANIDINE 2MG PO Q8H PRN MUSCLE SPASM The patient's discharge medication list was reviewed for discrepancies and discrepancies were resolved. Home Medications tizanidine 2 mg tablet 2 mg PO Q8 PRN muscle spasm #30 tabs 10/03/21 The patient was counseled on the following discharge medications and changes in medications for homegoing were reviewed. The Reason for Use, instructions for use, and potential side effects were reviewed for all new medications. The patient's questions regarding all of their medications were answered. The patient was able to verbally demonstrate an understanding of their discharge medications.
[2021-10-03 14:25] VITALS: BP 110/69; PULSE 95; RESP 18; TEMP 36.8; O2SAT 98
== END 2021-10-03 13:10 | disposition home or self-care (01) ==
LOC: ED 19:15 → PCU 19:52
PROVIDERS: Admitting Provider Family Medicine; Emergency Provider Emergency Medicine; Visit Provider Internal Medicine
DX: I47.1 Supraventricular tachycardia (principal); I49.8 Other specified cardiac arrhythmias; R73.9 Hyperglycemia, unspecified; M54.10 Radiculopathy, site unspecified; M54.6 Pain in thoracic spine; I44.0 Atrioventricular block, first degree; M54.50 Low back pain, unspecified; N40.0 Benign prostatic hyperplasia without lower urinary tract symptoms
CPT/HCPCS: 36415; 71275; 72157; 72158; 74174; 80053; 80061; 80307; 81001; 83735; 84153; 84439; 84443; 84484; 85025; 93005; 93306; 96361; 96372; 96374; 96375; 96376; 99218; 99285; A9575; J7030; Q9967; A4216; G0378

== ENCOUNTER → 2021-10-04 | Outpatient (CLI) | payer BC, SELFPAY ==
[2021-10-04 15:44] LABS: Lyme Ab Screen Interpretation REF LAB; Lyme Scn Total Ab w/Rflx REF LAB
== END | disposition home or self-care (01) ==
LOC: BIMLAB 15:43
PROVIDERS: Visit Provider Physician Assistant
DX: M54.9 Dorsalgia, unspecified (principal)
CPT/HCPCS: 36415; 86618